=== PATIENT | male | born 1995 | race Caucasian/White ===

== ENCOUNTER 2017-01-06 21:39 | Emergency (ER) | payer BC ==
[2017-01-07 01:42] VITALS: BP 133/69
--- NOTE | 2017-01-07 01:44 | ED ---
Laceration/Wound HPI - HPI Summary HPI Summary: Patient presents to the ED with CC of right hand laceration from a broken glass in a sink. Minimal blood loss per patient. Denies pain. Denies numbness or tingling. Pulses +2 bilaterally. Cap refill < 2 sec. Denies temperature or color changes. He has full ROM or the wrist and the fingers on the ipsilateral hand The wound is a cresent shape just lateral to the thenar eminence. - History of Current Complaint Stated Complaint: HAND LACERATION Time Seen by Provider: 01/06/17 22:52 Hx Obtained From: Patient Mechanism of Injury: Sharp/Blunt Trauma Onset/Duration: Sudden Onset Aggravating: Movement Alleviating: Compression Timing: Constant Onset Severity: Mild Current Severity: None Pain Intensity: 2 Pain Scale Used: 0-10 Numeric Associated Signs & Symptoms: Negative PMH/Surg Hx/FS Hx/Imm Hx Previously Healthy: Yes - Immunization History Hx Pertussis Vaccination: No Immunizations Up to Date: Unable to Obtain/Confirm Infectious Disease History: No Infectious Disease History: Denies: Traveled Outside the [place] in Last 30 Days - Social History Occupation: Unemployed, Student Lives: With Family Alcohol Use: Occasionally Hx Substance Use: No Substance Use Type: Reports: None Hx Tobacco Use: No Smoking Status (MU): Never Smoked Tobacco Review of Systems Constitutional: Negative Eyes: Negative Cardiovascular: Negative Respiratory: Negative Genitourinary: Negative Positive: no symptoms reported, see HPI Musculoskeletal: Negative Positive: Other - laceration Neurological: Negative All Other Systems Reviewed And Are Negative: Yes Physical Exam Triage Information Reviewed: Yes Vital Signs On Initial Exam: Initial Vitals Temp Pulse Resp BP Pulse Ox 98.7 F 60 18 137/76 99 01/06/17 21:50 01/06/17 21:50 01/06/17 21:50 01/06/17 21:50 01/06/17 21:50 Vital Signs Reviewed: Yes Appearance: Positive: Well-Appearing, Well-Nourished Skin: Positive: Warm, Skin Color Reflects Adequate Perfusion Head/Face: Positive: Normal Head/Face Inspection Eyes: Positive: EOMI, ADRIA, Conjunctiva Clear Neck: Positive: Supple, No Lymphadenopathy Respiratory/Lung Sounds: Positive: Clear to Auscultation, Breath Sounds Present Musculoskeletal: Positive: Normal, Strength/ROM Intact Neurological: Positive: Speech Normal Psychiatric: Positive: Normal AVPU Assessment: Alert Procedures - Laceration/Wound Repair 1 Location: upper extremity Description: Irregular Anesthesia: Local, 1.0% Betadine Prep?: No Laceration/Wound Explored: clean Suture Type: Prolene - 4-0 Number of Sutures: 13 Layer Closure?: No Sterile Dressing Applied?: Yes Diagnostics - Vital Signs Vital Signs Temp Pulse Resp BP Pulse Ox 01/06/17 21:50 98.7 F 60 18 137/76 99 - Laboratory Lab Statement: Any lab studies that have been ordered have been reviewed, and results considered in the medical decision making process. Laceration Repair Course/Dx - Course Course Of Treatment: 5cm eclipse shaped superifical laceration without tendon involvment. Timeout obtained. Cleansed wound. Irrigated with 20CC's normal. saline. Lidocaine without epi as local anesthetic - 2ml. Soaked in chlorehexadine for 5 minutes. 4-0 non-absorbable prolene. 13 sutures placed using simple interrupted. technique. Patient tolerated well. Cleaned and dressed wound with. telfa dressing. NV exam WNL. Sutures out in 5 days. Return. precautions given. Patient OK with discharge. - Clinical Impression Provider Diagnoses: Laceration Discharge - Discharge Plan Condition: Stable Disposition: HOME Patient Education Materials: Care For Your Stitches (ED), Stitches Removal (ED) Referrals: [facility] [Primary Care Provider] - Additional Instructions: Sutures out in 6-7 days Keep the area covered x 24 hours Then, leave open to air Images - Images Hands: 1 - 5cm eclipse shaped superifical laceration without tendon involvment
== END 2017-01-07 01:40 | disposition home or self-care (01) ==
LOC: ED 21:39
DX: S61.411A Laceration without foreign body of right hand, initial encounter (principal); W25.XXXA Contact with sharp glass, initial encounter; Y93.9 Activity, unspecified; Y92.9 Unspecified place or not applicable; Y99.9 Unspecified external cause status
CPT/HCPCS: 99281